=== PATIENT | female | born 1965 | race Caucasian/White ===

== ENCOUNTER 2017-10-03 07:24 | Emergency (ER) | payer BC ==
[2017-10-03] MEDS ORDERED: HYDROMORPHONE HCL 2 MG/ML VIAL IVP ONE ×2 (07:32→07:55)
[2017-10-03] MEDS ORDERED: 0.9 % SODIUM CHLORIDE 1,000 ML BAG IV ONE (07:32)
[2017-10-03] MEDS ORDERED: ONDANSETRON HCL IV 4 MG/2 ML VIAL IV ONE (07:32)
--- NOTE | 2017-10-03 07:36 | Emergency Department Record ---
History of Present Illness - General Chief complaint: Flank Pain Stated complaint: THINK I HAVE A KIDNEY STONE Time Seen by Provider: 10/03/17 07:31 Source: Patient Mode of Arrival: Ambulatory Limitations: No limitations - History of Present Illness Initial comments: The patient is here due to L flank pain for one day. The pain is sharp and stabbing in the LLQ with intermittent radiation to the back. She has had nausea and vomiting with it. The patient does have a hx of a kidney stone and this feels just like another one. She denies any other recent illnesses. MD Complaint: Other Onset/Timin -: Days(s) Radiation: L flank Severity: Moderate Severity scale (1-10): 8 Consistency: Constant Improves with: None Associated Symptoms: Abdominal pain, Nausea/vomiting - Related Data Home Medications Medication Instructions Recorded Confirmed Last Taken No Home Med [NO HOME MEDS] 10/03/17 10/03/17 Unknown Allergies Allergy/AdvReac Type Severity Reaction Status Date / Time No Known Drug Intolerances Allergy Unknown none Unverified 10/03/17 07:54 Travel Screening - Travel/Exposure Within Last 30 Days Have you traveled within the last 30 days?: No - Travel/Exposure Within Last Year Have you traveled outside the [place] in the last year?: No - Additonal Travel Details Have you been exposed to anyone with a communicable illness?: No - Travel Symptoms Symptom Screening: None Review of Systems Constitutional: Denies: Chills, Fever Eyes: Denies: Eye discharge ENT: Denies: Congestion Respiratory: Denies: Cough, Dyspnea Past Medical History - SOCIAL HISTORY Smoking Status: Never smoker Alcohol Use: Rare Drug Use: None Family Medical History Any Significant Family History?: No Physical Exam - General General Appearance: Alert, Oriented x3, Cooperative - Head Head exam: Atraumatic, Normocephalic, Normal inspection - Eye Eye exam: Normal appearance, PERRL - Neck Neck exam: Normal inspection, Full ROM. negative: Tenderness - Respiratory Respiratory exam: Normal lung sounds bilaterally. negative: Respiratory distress - Cardiovascular Cardiovascular Exam: Regular rate, Normal rhythm, Normal heart sounds - GI/Abdominal GI/Abdominal exam: Soft, Tenderness (There is significant tenderness in the LLQ. ). negative: Rebound, Rigid - Extremities Extremities exam: Normal inspection, Full ROM, Normal capillary refill. negative: Tenderness - Neurological Neurological exam: Alert. negative: Motor sensory deficit Course Vital Signs 10/03/17 07:29 Temperature 97.6 F Pulse Rate 74 Respiratory 18 Rate Blood Pressure 145/95 Pulse Ox 100 - Reevaluation(s) Reevaluation #1: The patient is doing better at this time. She feels able to proceed to [facility] for the CT due to our CT scanner being non-funtional. 10/03/17 8:30 Reevaluation #2: The patient has been in quite a lot of pain with vomiting. She is doing better now after the 3rd dose of Zofran. She is presently resting comfortably. I did discuss the CT results and the need for Urology consultation. 10/03/17 10:50 Reevaluation #3: I did discuss the case with Dr. Gardner (Urology) and he would like the patient to be transferred to the [facility] ED where he can evaluate the patient for surgery. I then did discuss the case with Dr. Chun in the ED and he does accept the patient in an ED to ED transfer. 10/03/17 11:18 Medical Decision Making - Data Complexity MDM Data: Labs Ordered and/or Reviewed, X-Ray Ordered and/or Reviewed (CT: 1 x 0.6 cm stone L UPJ with mild hydro.) - Lab Data Result diagrams: 10/03/17 07:40 10/03/17 07:40 Disposition Disposition: Transfer Clinical Impression: Ureteral stone with hydronephrosis Disposition: Acute Care Hospital Transfer Transfer To: [facility] Reason For Transfer: Urology Accepting Physician: Adiel Time Discussed w/Accepting Physician: 11:20 Condition: (2) Stable Additional Instructions: Please proceed directly to the [facility] ED and do not eat or drink. Forms: Patient Portal Access Time of Disposition: 11:20 Quality - Quality Measures Quality Measures: N/A - Blood Pressure Screening View Details: Yes Does Patient Have Any of the Following: No Blood Pressure Classification: Normal BP Reading Systolic Measurement: 114 Diastolic Measurement: 60 Screening for High Blood Pressure: < Normal BP, F/U Not Required > [G8783]
[2017-10-03 07:53] LABS: BASO % 0.4 % (0-6); EOS % 3.1 % (0-6); HEMATOCRIT 31.9 % (35.0-47.0); LYMPH % 40.4 % (16-45); MEAN CELL VOLUME 73.3 fl (81-97); MEAN CORPUSCULAR HEMOGLOBIN 20.6 pg (27-33); MEAN CORPUSCULAR HGB CONC 28.2 g/dl (32-36); MEAN PLATELET VOLUME 8.3 fl (7.4-10.4); MONO % 7.1 % (0-9); PLATELET COUNT 296 K/uL (130-400); RED BLOOD COUNT 4.35 M/uL (3.80-5.40); RED CELL DISTRIBUTION WIDTH 16.2 % (11.5-14.5); WHITE BLOOD COUNT W/O DIFF 4.5 K/uL (4.2-12.2)
[2017-10-03 08:05] LABS: BLOOD UREA NITROGEN 12 mg/dL (6-20); CREATININE 0.8 mg/dL (0.5-0.9); EST GLOMERULAR FILTRATION RATE > 60 mL/min
[2017-10-03 08:08] LABS: GLUCOSE,RANDOM 141 mg/dL (74-109)
[2017-10-03] MEDS ORDERED: KETOROLAC 30 MG/ML VIAL IVP ONE ×2 (08:23→10:17)
[2017-10-03] MEDS ORDERED: ONDANSETRON HCL IV 4 MG/2 ML VIAL IVP ONE ×2 (08:29→10:14)
[2017-10-03 08:38] LABS: URINE APPEARANCE CLEAR; URINE BILIRUBIN NEGATIVE (NEGATIVE); URINE BLOOD MODERATE (NEGATIVE); URINE COLOR YELLOW; URINE GLUCOSE (UA) NEGATIVE (NEGATIVE); URINE KETONE NEGATIVE (NEGATIVE); URINE LEUKOCYTE ESTERASE NEGATIVE (NEGATIVE); URINE NITRITE NEGATIVE (NEGATIVE); URINE PROTEIN TRACE (NEGATIVE); URINE UROBILINOGEN 0.2 E.U./dL (0.20 - 1.00)
[2017-10-03 08:42] LABS: HCG,QUALITATIVE URINE NEGATIVE (NEGATIVE); URINE EPITHELIAL CELLS 0 - 2 (FEW); URINE WBC NONE SEEN (0-2/hpf)
== END 2017-10-03 11:35 | disposition short-term general hospital (02) ==
LOC: ER 07:24
DX: N13.2 Hydronephrosis with renal and ureteral calculous obstruction (principal); R10.32 Left lower quadrant pain; R11.2 Nausea with vomiting, unspecified; Z87.442 Personal history of urinary calculi
CPT/HCPCS: 80048; 81001; 81025; 85025; 96361; 96374; 96375; 96376; 99284; J1885; J2405; J7030